=== PATIENT | male | born 1950 | race Caucasian/White ===

== ENCOUNTER 2016-07-29 11:04 | Inpatient (IN) | payer MEDICAID ==
[~2016-07-29] VITALS: Ht 180.3 cm; Wt 92.5 kg
--- NOTE | ~2016-07-29 | OP ---
PATIENT NAME: ALDAIR SANTOS MEDICAL RECORD: [id number] :54 LOCATION:D.M2 D.2117 ADMISSION DATE:07/29/16 SURGEON: LESTER FUNES MD DATE OF OPERATION: 07/31/2016 SURGEON: Lester Funes MD. ANESTHESIA: General, Dr. Root. OPERATION PERFORMED: Insertion of dual-chamber pacing system. PREOPERATIVE DIAGNOSES: Sick sinus syndrome, bradycardia. POSTOPERATIVE DIAGNOSES: Sick sinus syndrome, bradycardia. INDICATION FOR OPERATION: Profound bradycardia. FINDINGS OF THE OPERATION: The pulse generator Medtronic Adapta ADDR01, serial number [id number]. ATRIAL LEAD: Medtronic model number 4574-45, serial number [id number]. Ventricular lead Medtronic model number 4074-52, serial number [id number]. LEAD ANALYSIS: Atrial lead threshold 0.3 volts, current lead threshold 0.4 milliamps, resistance 593 ohms. P-wave 2.6, slew rate 2.3. Ventricular lead threshold 0.3 volts, current lead threshold 0.2 milliamps, resistance 1021 ohms, R-wave 10.0, slew rate 4.1. ESTIMATED BLOOD LOSS: Less than 5 cc. DESCRIPTION OF PROCEDURE: After informed consent, adequate preoperative medication and evaluation, the patient was brought to the operating room and placed on the table in the supine position. After induction of general endotracheal anesthesia and application of appropriate monitoring devices, the left chest was prepped and draped in a sterile field, utilizing Betadine scrub, alcohol, and Betadine solution. A Betadine-impregnated drape was also used. A 1% lidocaine was infiltrated in the left subclavicular space. Incision was made and dissection carried down the fascia. A pacemaker pocket was formed. Subclavian vein was cannulated with the introducers, leads placed in the heart. The above electrophysiologic study was done. The leads were secured. The leads were then connected to the pulse generator and pacemaker placed in the pocket. Pacemaker fired, captured and sensed appropriately. Pocket was irrigated. Instrument count and sponge count were correct times 2. Pocket was closed in layers utilizing 3-0 Vicryl on the deep subcutaneous tissue with 3-0 Vicryl on superficial subcutaneous tissues. Skin approximated with 5-0 subcuticular Monocryl. Sterile dressings were applied. The patient tolerated the procedure well and was transferred to postanesthesia recovery in satisfactory condition. TRANSINT:[id number] Voice Confirmation ID: [id number] DOCUMENT ID: [id number] OPERATIVE REPORT [id number] ALDAIR SANTOS EDWARD MD CC: [id number] DICTATION DATE: 07/31/161452 RECORDS MANAGEMENT ASSOCIATE: 07/31/162235 ADM IN [place] [id number] [place] [address]
--- NOTE | ~2016-07-29 | HEMODYNAMI ---
PATIENT:ALDAIR SANTOS MEDICAL RECORD: [id number] : 54 LOCATION[id number] ADMISSION DATE: 07/29/16 Generatedon:07/30/201611:47 Patient name: ALDAIR SANTOS Patient #: [id number] SSN: : 1950 Date of study: 07/30/2016 Page: Of Hemodynamic Procedure Report Patient Data Patient Demographics Procedure consent was obtained First Name: ALDAIR Gender: Male Last Name: DANIELLE : 1950 [facility] Initial: CIRILO Age: 65 year(s) Patient #: [id number] Race: Unknown Additional ID: [id number] Contact details [address]: [address] [place] [address] [address] State: [place] City: [place] Zip code: [address] Past Medical History Allergies: No known allergies Admission Admission Data Admission Date: 07/29/2016 Admission Time: 14:58 Room #: D.2117 Lab Results Lab Result Date: 07/29/2016 Lab Result Time: 0:00 Biochemistry Name Units Result Min Max CK-MB ng/ml 10.9 --(----)-* 0 3.6 Creatinine mg/dl 1.2 --(---*)-- 0.6 1.3 Creatinine l 422 --(----)-* 21 215 Kinase Troponin l ng/ml 0.017 --(-*--)-- 0 0.06 CBC Name Units Result Min Max Hemoglobin g/dl 13.7 --(*---)-- 13.5 17.5 Procedure Procedure Types Cath Procedure Diagnostic Procedure C [facility] w/Coronaries FFR/IVUS Intra-Coronary IVUS Initial PCI Procedure Coronary Stent Initial Miscellaneous Procedures Moderate Sedation up to 30 minutes Procedure Description Procedure Date Procedure Date: 07/30/2016 Procedure Start Time: 11:26 Procedure End Time: 11:47 Procedure Staff Name Function Luis Alberto Carroll MD Performing Physician Jose Delgadillo RT Scrub Saeid Suggs RN Nurse Monika Mendez RT Monitor Procedure Data Cath Procedure Fluoroscopy Diagnostic fluoroscopy Total fluoroscopy Time: 4 time: 4 min min Diagnostic fluoroscopy Total fluoroscopy dose: 675 dose: 675 mGy mGy Contrast Material Contrast Material Type Amount (ml) Isovue 300 87 Entry Location Entry Primary Successful Side Size Upsize Upsize Entry Closure Martínez ccessful Closure Location (Fr) 1 (Fr) 2 (Fr) Remarks Device Remarks Radial Right 6 Fr Mechanical artery Short Compression Estimated blood loss: 10 ml Diagnostic catheters Device Type Used For End Catheter Placement Terumo 5Fr Tram 110cm LV Angiography catheter Terumo 5Fr Tram 110cm Left Coronary catheter Angiography Terumo 5Fr Tram 110cm Right Coronary catheter Angiography Diagnostic Infinity 5Fr Right Coronary AR 2 MOD catheter Angiography Procedure Complications No complications Procedure Medications Medication Administration Route Dosage Oxygen NC 2 l/min Heparin Flush Bag added to field 2 bags (1000units/500ml NS) 0.9% NaCl I.V. 100 ml/hr Radial Cocktail added to field 1 syringe (Verapomil 2mg/Nitro 400mcg/Heparin 1500units) Effient P.O. 10 mg Fentanyl I.V. 50 mcg Versed I.V. 1 mg Fentanyl I.V. 50 mcg Versed I.V. 1 mg Radial Cocktail I.A. 1 syringe (Verapomil 2mg/Nitro 400mcg/Heparin 1500units) Heparin Bolus I.V. 4000 units Hemodynamics Rest HGB: 13.7 (g/dl) Heart Rate: 49 (bpm) Snapshots Pre Cath Intra NCS Post Cath Vital Signs Time Heart Resp SPO2 etCO2 [id number] NIBP (mmHg) Rhythm Pain Sedation Rate (ipm) (%) (mmHg) (mmHg) Status Level (bpm) 11:10:11 48 18 95 0 0 186/92(124) NSR 0 (11) 10(A) , No pain 11:14:43 48 17 96 0 0 184/90(157) NSR 0 (11) 10(A) , No pain 11:20:17 49 16 96 0 0 167/81(131) NSR 0 (11) 10(A) , No pain 11:24:43 48 17 95 0 0 150/88(134) NSR 0 (11) 10(A) , No pain 11:29:05 50 18 95 0 0 149/82(110) NSR 0 (11) 9(A) , No pain 11:33:15 53 18 96 0 0 122/75(105) NSR 0 (11) 9(A) , No pain 11:37:29 49 18 96 0 0 135/76(106) NSR 0 (11) 9(A) , No pain 11:41:45 49 16 94 0 0 149/84(108) NSR 0 (11) 9(A) , No pain 11:46:09 46 18 95 0 0 161/78(125) NSR 0 (11) 9(A) , No pain Medications Time Medication Route Dose Verified Delivered Reason Note s Effectiveness by by 11:08:10 Oxygen NC 2 l/min Saeid Breaux Per physician Ifeanyi Suggs RN RN 11:08:22 Heparin Flush added 2 bags Saeid Cheny used for Bag to Ifeanyi Suggs RN procedure (1000units/500ml field RN NS) 11:08:38 0.9% NaCl I.V. 100 Saeid Breaux Per physician ml/hr Ifeanyi Suggs RN RN 11:08:50 Radial Cocktail added 1 Saeid Breaux used for (Verapomil to syringe Ifeanyi Suggs RN procedure 2mg/Nitro RN 400mcg/Heparin 1500units) 11:13:13 Effient P.O. 10 mg Saeid Cheny for Ifeanyi Suggs RN antiplatelet RN therapy 11:25:41 Fentanyl I.V. 50 mcg Saeid Cheny for sedation Ifeanyi Suggs RN RN 11:25:49 Versed I.V. 1 mg Saeid Breaux for sedation Ifeanyi Suggs RN RN 11:30:46 Fentanyl I.V. 50 mcg Saeid Saeid for sedation Ifeanyi Suggs RN RN 11:30:51 Versed I.V. 1 mg Saeid Saeid for sedation Ifeanyi Suggs RN RN 11:31:02 Radial Cocktail I.A. 1 Saeid Almanzarrey for (Verapomil syringe Ifeanyi bhandari 2mg/Nitro RN 400mcg/Heparin 1500units) 11:37:49 Heparin Bolus I.V. 4000 Saeid Breaux for units Ifeanyi Suggs RN anticoagulation religion professor Log Time Note 10:50:11 Saeid Suggs RN sent for patient. Start room use. 10:57:11 Time tracking: Regular hours 10:57:15 Plan of Care:Hemodynamics will remain stable., Cardiac rhythm will remain stable., Comfort level will be maintained., Respiratory function will remain adequate., Patient/ family verbilizes understanding of procedure., Procedure tolerated without complication., Recovers from procedure without complications.. 11:02:26 Patient received from PCU to CCL 1 Alert and oriented. Tansferred to table in Supine position. 11:02:27 Warm blankets applied, and kemar hugger turned on for patient comfort. 11:02:28 Correct patient and procedure confirmed by team. 11:02:29 Signed procedure consent form obtained from patient. 11:02:30 ECG and BP/O2 sat monitors applied to patient. 11:02:31 Full Disclosure recording started 11:07:50 Vital chart was started 11:08:10 Oxygen 2 l/min NC was administered by Saeid Suggs RN; Per physician; 11:08:22 Heparin Flush Bag (1000units/500ml NS) 2 bags added to field was administered by Saeid Suggs RN; used for procedure; 11:08:38 0.9% NaCl 100 ml/hr I.V. was administered by Saeid Suggs RN; Per physician; 11:08:50 Radial Cocktail (Verapomil 2mg/Nitro 400mcg/Heparin 1500units) 1 syringe added to field was administered by Saeid Suggs RN; used for procedure; 11:13:13 Effient 10 mg P.O. was administered by Saeid Suggs RN; for antiplatelet therapy; 11:14:48 H&P Date Dictated: 07/30/2016 Within 30 days and on chart.. 11:14:53 Rhythm: sinus bradycardia 11:14:55 Baseline sample Acquired. 11:14:56 Pre-procedure instructions explained to patient. 11:14:57 Pre-op teaching completed and patient verbalized understanding. 11:14:59 Family in patients room. 11:15:02 Patient NPO since Midnight. 11:15:10 Patient allergic to No known allergies 11:15:13 Is the patient allergic to Iodine/contrast media? No. 11:15:18 Is patient on blood thinner?Yes 11:15:20 ACC The patient was administered the following blood thiners within the last 24 hours: ACCEffient 11:15:26 Patient diabetic? No. 11:15:36 Previous problem with sedation/anesthesia? No ? 11:15:39 Snore? Yes 11:15:40 Sleep apnea? Yes 11:15:41 Deviated septum? No 11:15:41 Opens mouth fully? Yes 11:15:42 Sticks out tongue? Yes 11:15:45 Airway obstruction? No ? 11:15:48 Dentures? Yes OUt 11:16:03 IV Extension Set opened to sterile field. 11:16:10 Pre procedure: right dorsailis pedis pulse 2+ Normal; easily identifiable; not easily obliterated 11:16:12 Modified Joo's test Ulnar < 7 seconds 11:16:14 Patient pain scale 0/10 ?. 11:16:20 IV patent on arrival in left forearm with 0.9% NaCl at [facility]. 11:17:19 Lab Result : Creatinine 1.2 mg/dl 11:17:19 Lab Result : CK-MB 10.9 ng/ml 11:17:19 Lab Result : Troponin l 0.017 ng/ml 11:17:19 Lab Result : Creatinine Kinase 422 l 11:17:19 Lab Result : Hemoglobin 13.7 g/dl 11:19:48 Lab results completed and on chart. 11:19:52 Right Radial & Right Groin area was prepped with chlora-prep and draped in sterile fashion 11:19:55 Alarms reviewed by R. N. 11:19:55 Sharps counted by scrub and verified by R.N. 11:19:58 Use device set Radial Dx 11:19:59 Acist Syringe opened to sterile field. 11:20:00 Medline Cath Pack opened to sterile field. 11:20:00 Bag Decanter opened to sterile field. 11:20:01 Terumo 6Fr Slender Glidesheath opened to sterile field. 11:20:01 St Khalif 260cm J .035 wire opened to sterile field. 11:20:02 Acist Hand Control opened to sterile field. 11:20:02 Acist Manifold opened to sterile field. 11:20:03 Tegaderm 4 x 4 opened to sterile field. 11:20:03 MBrace Wrist Support opened to sterile field. 11:24:46 Final Timeout: patient, procedure, and site verified with staff and physician. All members of the team are in agreement. 11:24:51 Right Radial site verified by team. 11:24:55 Physical assessment completed. ASA score P 2 - A patient with mild systemic disease as per Jose Delgadillo RT(R). 11:24:58 Sedation plan: IV Moderate Sedation Versed, Fentanyl 11:25:08 Zero performed for pressure channel P1 11:25:12 Zero performed for pressure channel P1 11:25:14 Zero performed for pressure channel P1 11::17 Zero performed for pressure channel P1 11:25:30 Procedure started. 11:25:41 Fentanyl 50 mcg I.V. was administered by Saeid Suggs RN; for sedation; 11::49 Versed 1 mg I.V. was administered by Saeid Suggs RN; for sedation; 11:26:22 Local anesthetic to right radial artery with Lidocaine 2% by Luis Alberto Carroll MD.INITIAL ACCESS ONLY 11:30:40 A 6 Fr Short sheath was inserted into the Right Radial artery 11:30:46 Fentanyl 50 mcg I.V. was administered by Saeid Suggs RN; for sedation; 11::51 Versed 1 mg I.V. was administered by Saeid Suggs RN; for sedation; 11:31:02 Radial Cocktail (Verapomil 2mg/Nitro 400mcg/Heparin 1500units) 1 syringe I.A. was administered by Luis Alberto Carroll MD; for vasodilation; 11:31:53 A Terumo 5Fr Tram 110cm catheter was advanced over the wire and used for LV Angiography. 11:32:14 LV gram done using EDUARDO 11:32:17 Injector settings: Ml/sec: 5, Volume: 15, 11:32:24 EF : 55 % 11:32:42 A Terumo 5Fr Tram 110cm catheter was advanced over the wire and used for Left Coronary Angiography. 11:33:22 Merit BasixCompak Inflation Kit opened to sterile field. 11:33:22 Anderson Whisper J 300cm 0.014 guide wire opened to sterile field. 11:34:08 A Terumo 5Fr Tram 110cm catheter was advanced over the wire and used for Right Coronary Angiography.Unable to cannulate. 11:34:16 Catheter removed. 11:34:26 A Diagnostic Infinity 5Fr AR 2 MOD catheter was advanced over the wire and used for Right Coronary Angiography. 11:35:37 Catheter removed. 11:35:43 Medtronic Launcher 6Fr AR 2.0 guide catheter opened to sterile field. 11:36:20 6 Fr AR 2.0 guide catheter was inserted over the wire 11:37:49 Heparin Bolus 4000 units I.V. was administered by Saedi Suggs RN; for anticoagulation; 11:37:55 Whisper wire advanced. 11:38:43 [place] Lummi Eagleye IVUS Catheter opened to sterile field. 11:39:20 IVUS catheter advanced over wire. 11:41:16 IVUS pass to RCA lesion performed. 11:41:19 IVUS catheter removed over wire. 11:42:53 Inflation Number: 1 A Medtronic Integrity 4.0 X 18 stent was prepped and advanced across the Prox RCA. The stent was deployed at 17 EFRAÍN for 0:10 (min:sec). 11:43:06 Stent catheter was removed intact over wire. 11:43:07 Wire removed. 11:43:07 Guide catheter removed. 11:43:17 Sheath removed intact; hemostasis achieved with Mechanical Compression to the Right Radial artery. 11:43:27 Procedure ended.(Physican Out) 11:43:38 Fluoroscopy time 04.00 minutes. 11:43:42 Flurop Dose total: 675 11:43:42 Fluoroscopy dose: 675 mGy 11:43:45 Contrast amount:Isovue 300 87ml. 11:43:47 Sharps counted by scrub and verified by R.N. 11:43:49 TR band inflated with 12cc of air. 11:43:50 Insertion/operative site no bleeding no hematoma. 11:43:57 Post right radial artery:stable, clean and dry 11:43:59 Post Procedure Pulses reassessed and unchanged 11:44:04 Post-procedure physical assessment completed. ASA score P 2 - A patient with mild systemic disease as per Luis Alberto Carroll MD. 11:44:08 Post procedure rhythm: unchanged. 11:44:12 Estimated blood loss: 10 ml 11:44:14 Post procedure instruction explained to patient.Patient verbalizes understanding. 11:44:15 Patient needs reinforcement of post procedure teaching. 11:44:33 Procedure type changed to Cath procedure, Diagnostic procedure, LHC, LHC w/Coronaries, FFR/IVUS, Intra-Coronary IVUS Initial, PCI procedure, Coronary Stent Initial, Miscellaneous Procedures, Moderate Sedation up to 30 minutes 11:44:38 Procedure Complication : No complications 11:44:40 See physician's report for complete and final results. 11:44:57 Terumo TR Band Standard opened to sterile field. 11:47:05 Procedure and supply charges have been captured, reviewed, submitted and are correct. 11:47:07 Vital chart was stopped 11:47:09 Report given to PCU. 11:47:13 Patient transfered to PCU with Bed. 11:47:21 Procedure ended. 11:47:21 Full Disclosure recording stopped 11:47:24 End room use (Document Last) Intervention Summary Intervention Notes Time ActionType Lesion and Equipment Action# Pressure Duration Attributes Used 11:42:53 Place stent Prox RCA Medtronic 1 17 00:10 Integrity 4.0 X 18 stent Device Usage Item Name Manufacture Quantity Catalog Hospital Part Current Minimal Lot# / Number Charge Number Stock Stock Serial# Code IV Hospira 1 63310-51 057265 81761 712794 5 Extension Set Acist Acist 1 53299 708799 802624 904088 20 Syringe Medical Systems Inc Medline Cardinal 1 [id number] 475135 18162 610829 5 Cath Pack Health Bag Microtek 1 2002S 689113 08999 483572 5 Medialets Medical Inc. Terumo 6Fr Terumo 1 [id number] 165195 556483 552402 [address] Khalif 1 383641 451681 401594 600112 30 260cm J .035 wire Acist Hand Acist 1 86405 487760 521873 319816 5 Control Medical Systems Inc Acist Acist 1 61574 256245 467115 172757 5 Manifold Medical Systems Inc Tegaderm 4 3M 1 1626W 044176 150854 613618 5 x 4 MBrace Advanced 1 140-0250-00 670855 65365 749341 5 Wrist Vascular Support Dynamics Terumo 5Fr Terumo 1 85-9202 987560 853546 354353 5 Tram 110cm catheter Merit Merit 1 SC4913 256453 962513 019529 15 BasixCompak Medical Inflation Kit Anderson Anderson 1 [id number] 668659 917990 166104 5 Whisper J Vascular 300cm 0.014 guide wire Diagnostic Cardinal 1 [id number] 883539 851134 356895 20 Infinity Health 5Fr AR 2 MOD catheter Medtronic Medtronic 1 [id number] 418584 66144 462931 1 Launcher 6Fr AR 2.0 guide catheter [place] Town Old Town 1 [id number] 727291 811406 031497 8 Lummi Eagleye IVUS Catheter Medtronic Medtronic 1 [id number] 840966 607928 829644 8 [id number] Integrity 4.0 X 18 stent Terumo TR Terumo 1 [id number] 853592 950729 040928 40 Band Standard Signature Audit [place] Stage Time Signature Unsigned Intra-Procedure 07/30/2016 Monika 11:47:34 AM Counts RT(R) Signatures Monitor : Monika Signature : Counts RT Date : Time : [place] [address] [place] [address]
[2016-07-29 12:42] LABS: EOSINOPHILS 1.2 % (0-7); HEMATOCRIT 42.6 % (42.0-54.0); HEMOGLOBIN 13.7 g/dL (13.5-17.5); LYMPHOCYTES 32.4 % (15-50); MCH 29.8 pg (26.0-34.0); MCHC 32.2 g/dL (31.0-37.0); MCV 92.6 fL (80.0-100.0); MEAN PLATELET VOLUME 10.2 fL (7.4-10.4); MONOCYTES 8.3 % (2-11); NEUTROPHILS 57.1 % (40-80); PLATELET COUNT 220 10x3/uL (130-400); RDW 13.6 % (11.5-14.5); WBC 6.1 10x3/uL (4.8-10.8)
[2016-07-29 13:00] LABS: ALBUMIN 3.7 g/dL (3.4-5.0); ALKALINE PHOSPHATASE 58 U/L (46-116); ALT (SGPT) 36 U/L (10-68); CALC OSMOLALITY 285 mosm/kg (275-300); CALCIUM 8.7 mg/dL (8.5-10.1); CARBON DIOXIDE 27.6 mmol/L (21.0-32.0); CHLORIDE - SERUM 108 mmol/L (98-107); CREATININE - SERUM 1.2 mg/dL (0.6-1.3); GLUCOSE 94 mg/dL (74-106); POTASSIUM - SERUM 4.9 mmol/L (3.5-5.1); PROTEIN - SERUM 7.2 g/dL (6.4-8.2); SODIUM 143 mmol/L (136-145); UREA NITROGEN 16 mg/dL (7-18); eGFR NON AFRICAN AMERICAN 65 mL/min (90-120)
[2016-07-29 13:09] LABS: CHOL - HDL RATIO 3.8 ratio (2.3-4.9); CHOLESTEROL, TOTAL 198 mg/dL (0-200); CKMB 10.9 U/L (0.0-3.6); CREATINE KINASE 422 UL (21-232); HDL CHOLESTEROL 52 mg/dL (32-96); LDL CHOLESTEROL 120 mg/dL (0-100); LDL-HDL RATIO 2.3 ratio (1.5-3.5); PRO BNP 133 pg/mL (0-125); TRIGLYCERIDE 132 mg/dL (30-200); TROPONIN-I < 0.017 ng/mL (0.000-0.060)
--- NOTE | 2016-07-29 16:00 | NUR ---
RECEIVED PT TO ROOM 2116 VIA W/C FROM ER TELEMETRY APPLEID PT HEART RATE DROPPED TO 30 PT BECOMES SYMPTOMATIC DIZZINESS SOB RESOLVES WHEN PT LAYS DOWN AAOX4 DENIES ANY CHEST PAIN AT THIS TIME WILL CONTINUE TO MONITOR
[2016-07-29 16:10] VITALS: BP 159/86; Ht 180.3 cm; Wt 92.5 kg
[2016-07-29] MEDS ORDERED: AVAPRO300 MG PO (18:13)
[2016-07-29] MEDS ORDERED: ISOSORBIDE MONO60 M1 PO (18:13)
[2016-07-29] MEDS ORDERED: EFFIENT10 MG PO (18:14)
[2016-07-29] MEDS ORDERED: BAYER CHEWABLE81 MG PO (18:14)
[2016-07-29] MEDS ORDERED: CARDURA4 MG PO (18:14)
[2016-07-29 20:00] VITALS: BP 127/75
[2016-07-30] VITALS: BP 156/81
[2016-07-30 04:00] VITALS: BP 177/81
[2016-07-30 08:10] VITALS: BP 149/68
--- NOTE | 2016-07-30 11:06 | NUR ---
PT TO GLOVE MACHINE OPERATOR VIA BED IN STABLE CONDITION
--- NOTE | 2016-07-30 11:46 | HP ---
PATIENT: ALDAIR SANTOS MEDICAL RECORD: [id number] ACCOUNT: [id number] LOCATION:D. D.2117 : 54 ADMISSION DATE: 07/29/16 HISTORY AND PHYSICAL EXAMINATION ADMITTING DIAGNOSES: 1. Angina. 2. Coronary artery disease. 3. Multivessel percutaneous transluminal coronary angioplasty stent last being in January [address] Davis. 4. Hyperlipidemia. 5. Hypertension. 6. Bradycardia. HISTORY OF PRESENT ILLNESS: This is a gentleman who presents with anginal symptomatology with past history of multivessel PTCA stent, last being in January 2016. His chest pain has been present for 2 days. He as well has a very significant bradycardia with heart rates in the low 40s. He has had overall fatigue and listlessness. His troponin is normal. PHYSICAL EXAMINATION: GENERAL APPEARANCE: Well-nourished, well-developed, appears stated age. Level of distress, comfortable. PSYCHIATRIC: Mental status, alert, normal affect. Orientation, oriented to time, place and person. EYES: Lids and conjunctiva, noninjected. No discharge, no pallor. ENT: Lips, teeth, gums, normal dentition. Oropharynx, no cyanosis, no pallor. NECK: Carotid arteries, bilateral normal upstroke, no bruits, no thrills. JUGULAR VEINS: No jugular venous pressure or distention. CERVICAL LYMPH NODES: Nontender, nonenlarged. THYROID: Not enlarged. Nontender. No nodules. LUNGS: Respiratory effort, unlabored. CHEST: Normal curvature. No thoracic deformity. No chest wall tenderness. Percussion, resonant. Auscultation, clear. No wheezes, no rales, no rhonchi. CARDIOVASCULAR: Precordial exam, nondisplaced. No heaves or pericardial thrills. Rate and rhythm, regular. Heart sounds, normal S1, normal S2. No S3, no gallop, no rub. Systolic murmur, not heard. Diastolic murmur, not heard. EXTREMITIES: No cyanosis, no edema. Peripheral pulses, full and equal in all extremities, except as noted. No bruits appreciated. ABDOMEN: Soft, nondistended. Normal aorta. No bruit. Nontender. No masses. Liver, nontender, no hepatomegaly. Spleen, nontender, no splenomegaly. MUSCULOSKELETAL: No joint tenderness. No joint swelling. No erythema. NEUROLOGICAL: Normal gait, normal strength, normal tone. SKIN: Warm and dry. REVIEW OF SYSTEMS: The patient reports easy bruising but reports no swollen glands. The patient reports no fever, no night sweats, no significant weight gain, no significant weight loss. No significant exercise tolerance. The patient reports no dry eyes, no irritation, no vision change. Patient reports no difficulty hearing and no ear pain. Patient reports no frequent nose bleeds or nose and sinus problems. Patient reports on arm pain on exertion. No shortness of breath while lying down. No history of heart murmur. Patient reports no cough, no wheezing or coughing up blood. Patient reports no abdominal pain, no vomiting. Normal appetite. No diarrhea and not vomiting blood. No nausea and no constipation. Patient reports no incontinence. No HISTORY AND PHYSICAL [id number] ALDAIR SANTOS difficulty urinating. No hematuria. No increased frequency. Patient reports no muscle aches. No weakness, no arthralgias, no back pain. No swelling of the extremities. Patient reports no abnormal mole, no jaundice, no rashes. Reports no loss of consciousness. No weakness and no numbness. No seizures, dizziness, or headaches. The patient reports no depression, no sleep disturbance, feeling safe in a relationship and no alcohol abuse. Patient reports on fatigue. Reports no runny nose or sinus pressure. No itching, no hives, and no frequent sneezing. OVERALL IMPRESSION: Anginal symptomatology and bradycardia. We will proceed with coronary angiography. Further care depends on the findings of the angiography. He very well may need a permanent pacemaker as well. TRANSINT:[id number] Voice Confirmation ID: [id number] DOCUMENT ID: [id number] ANA CRISTINA ATKINSON MD at 1146 CC: [id number] DICTATION DATE: 07/30/16 1004 MIDDLE SCHOOL COACH: 07/30/16 1039 ADM IN [place] [id number] [place] [address]
--- NOTE | 2016-07-30 13:00 | NUR ---
RECEIVED PT BACK FROM ORGANIZATIONAL DEVELOPMENT MANAGER VIA BED RT WRIST TR BAND IN PLACE WITH BRACE NO SIGNS OF BLEEDING
--- NOTE | 2016-07-30 13:20 | NUR ---
CONSULT CALLED TO DR AMATO
[2016-07-30 16:14] VITALS: BP 104/59
--- NOTE | 2016-07-30 19:00 | NUR ---
INITIAL ROUNDS MADE. PT SITTING UP IN BED WITH FAMILY IN ROOM. DENIES NEEDS OR C/O AT THIS TIME. RIGHT WRIST STABLE. VSS. CALL LIGHT IN REACH. WILL CONT TO MONITOR.
[2016-07-30 20:27] VITALS: BP 119/64
[2016-07-30 23:24] VITALS: BP 111/69
[2016-07-31 05:32] VITALS: BP 129/64
--- NOTE | 2016-07-31 05:54 | NUR ---
RESTING WELL WITH EYES CLOSED, NO DISTRESS NOTED. CALL LIGHT IN REACH. WILL CONT TO MONITOR.
--- NOTE | 2016-07-31 07:57 | NUR ---
AWAKE WITHOUT ANY DISTRESS. MONITOR SHOWS NSR @ PRESENT WITH RATE OF 67. NPO PER ORDERS. WILL CONTINUE TO MONITOR.
[2016-07-31 08:06] VITALS: BP 139/81
--- NOTE | 2016-07-31 10:01 | NUR ---
IV ACCESS-20 GAUGE INSERTED IN LEFT HAND X 1 ATTEMPT. LASHA MONTOYA RN
[2016-07-31 10:31] LABS: HEMATOCRIT 42.7 % (42.0-54.0); HEMOGLOBIN 14.1 g/dL (13.5-17.5); MCV 90.9 fL (80.0-100.0); MEAN PLATELET VOLUME 9.9 fL (7.4-10.4); RBC 4.7 10x6/uL (4.20-6.10); RDW 13.2 % (11.5-14.5); WBC 6.6 10x3/uL (4.8-10.8)
[2016-07-31 10:42] LABS: APTT 26.7 SECONDS (22.8-39.4); INR 1.01 (0.85-1.17); PROTIME 13.2 SECONDS (11.6-15.0)
[2016-07-31 10:44] LABS: ANION GAP 13.7 mmol/L (8-16); CALCIUM 8.4 mg/dL (8.5-10.1); CARBON DIOXIDE 26.5 mmol/L (21.0-32.0); CREATININE - SERUM 1.2 mg/dL (0.6-1.3); POTASSIUM - SERUM 4.2 mmol/L (3.5-5.1)
--- NOTE | 2016-07-31 11:14 | NUR ---
THIS AM. DR. AMATO VISITED AND EXPLAINED PACEMAKER TO PT AND FAMILY. JAIRO SUH GIVEN CONSENTS SIGNED. REMAINS NPO. @ 1115 MONITOR SHOWS SBRADYCARDIA @ 44. WILL CONTINUE TO MONITOR.
[2016-07-31 12:40] VITALS: BP 152/75
[2016-07-31 15:35] VITALS: BP 162/86
--- NOTE | 2016-07-31 15:38 | NUR ---
BACK FROM OR. AWAKE BUT SLEEPING. DRESSING CLEAN, DRY AND INTACT. VS STABLE. MONITOR SHOWS SR @ 60. WILL CONTINUE TO MONITOR.
[2016-07-31 16:12] VITALS: BP 162/86
--- NOTE | 2016-07-31 17:16 | NUR ---
RECEIVED REPORT FROM HARVEY CRUMP PT, AM MEDICINE, DENIES ANY NEEDS, CALL LIGHT IN REACH
--- NOTE | 2016-07-31 19:00 | NUR ---
INITIAL ROUNDS MADE. PT SITTING UP IN BED WITH FAMILY IN ROOM. LEFT CHEST WALL PM WITH DRSG INTACT. SLING IN PLACE. DENIES NEEDS OR C/O AT THIS TIME. WILL CONT TO MONITOR.
[2016-07-31 20:00] VITALS: BP 116/64
[2016-08-01] VITALS: BP 127/63
--- NOTE | 2016-08-01 00:02 | NUR ---
CONCHE LOADER AND UNLOADER AT BEDSIDE FOR VS. NEEDS ADDRESSED. CALL LIGHT IN REACH. WILL CONT TO MONITOR.
[2016-08-01 04:00] VITALS: BP 120/64
--- NOTE | 2016-08-01 06:07 | NUR ---
RESTING WELL WITH EYES CLOSED, NO NEEDS OR C/O AT THIS TIME. WILL CONT TO MONITOR.
[2016-08-01 07:58] VITALS: BP 115/82
--- NOTE | 2016-08-01 08:07 | NUR ---
AWAKE WAITING FOR PACEMAKER CHECK. MONITOR SHOWS PACING @ 60. DRESSING CDI.
[2016-08-01 11:25] VITALS: BP 101/63
--- NOTE | 2016-08-01 11:52 | OP ---
PATIENT NAME: ALDAIR SANTOS MEDICAL RECORD: [id number] :54 LOCATION:D.M2 D.2117 ADMISSION DATE:07/29/16 SURGEON: ANA CRISTINA ATKINSON MD DATE OF OPERATION: 07/30/2016 PROCEDURES: 1. PTCA stent RCA. 2. Intravascular ultrasound RCA. 3. Left heart catheterization. 4. Selective coronary angiography. 5. Left ventriculogram. INDICATION: Angina and coronary artery disease. PROCEDURE IN DETAIL: After informed consent was obtained and after detailed explanation of risks, benefits as well as alternative therapies, the patient elected to proceed with angiogram and angioplasty. The right femoral area was prepped and draped in normal sterile fashion. The right radial area was prepped and draped in normal sterile fashion. The right radial artery was cannulated via modified Seldinger technique with placement of 6-[place] sheath. All catheters exchanged through this sheath. FINDINGS: The left ventriculogram was performed in standard 30-degree EDUARDO view, reveals good cardiac wall motion throughout all segments. Overall ejection fraction 55% to 60%. SELECTIVE CORONARY ANGIOGRAPHY: 1. Left main showed no significant angiographic disease. 2. Left anterior descending has moderate irregularities, but no flow-limiting stenosis. The previously placed stent in the LAD is widely patent. 3. Left circumflex shows moderate irregularities, but no flow-limiting stenosis. 4. Right coronary has a 68% to 70% stenosis confirmed by intravascular ultrasound in the proximal vessel. PTCA STENT OF THE RIGHT CORONARY: The stent used was 4.0 x 18 mm Integrity. Result was 0% residual stenosis. OVERALL IMPRESSION: Successful percutaneous transluminal coronary angioplasty stent of the right coronary artery going from 68% to 70% initial stenosis confirmed by intravascular ultrasound to 0% residual stenosis. TRANSINT:[id number] Voice Confirmation ID: [id number] DOCUMENT ID: [id number] ANA CRISTINA ATKINSON MD at 1152 CC: [id number] DICTATION DATE: 07/30/16 1149 PROGRAM DEVELOPMENT MANAGER: 07/30/16 1207 [place] [address]
--- NOTE | 2016-08-01 13:02 | NUR ---
DISCHARGE INSTRUCTIONS GIVEN TO BOTH PATIENT AND SPOUSE. BOTH VERBALIZE UNERSTANDING. MONITOR SHOWS 60 PACED. IV REMOVED WITH TIP INTACT. TO CAR VIA [employer].
--- NOTE | 2016-08-01 13:14 | NUR ---
Patient Name: ALDAIR SANTOS Admission Status: ER Accout number: [id number] Admission Date: 07-31-2016 : 1950 Admission Diagnosis: Attending: KAMINI Current LOS: 1 Anticipated DC Date: 08-01-2016 Planned Disposition: Home Primary Insurance: [place] PRIVATE OPTIONS [place] LATE ENTRY: Discharge Planning Comments: * Is the patient Alert and Oriented? Yes 0 * How many steps to enter\exit or inside your home? 4 0 * PCP DR. SMITH 0 * Pharmacy [facility] 0 * Preadmission Environment Home with Family 0 * ADLs Independent 0 * Equipment None 0 * Other Equipment NO MEDICAL EQUIPMENT PROVIDER PREFERENCE 0 * List name and contact numbers for known caregivers / representatives who currently or will assist patient after discharge: WOODY SANTOS, SPOUSE, 0 * Community resources currently utilized None 0 * Please name any agencies selected above. NONE 0 * Additional services required to return to the preadmission environment? No 0 * Can the patient safely return to the preadmission environment? Yes 0 * Has this patient been hospitalized within the prior 30 days at any hospital? No 0 CM MET WITH PT IN ROOM TO DISCUSS DISCHARGE PLANNING AND NEEDS. PT REPORTS LIVING AT HOME INDEPENDENTLY WITH SPOUSE. PT HAS NO MEDICAL EQUIPMENT AND NO OUTSIDE SERVICES ASSISTING IN THE HOME. CM DISCUSSED AVAILABILITY OF HOME HEALTH, REHAB SERVICES AND MEDICAL EQUIPMENT. PT DENIES DISCHARGE NEEDS, REPORTS HIS SPOUSE IS HERE TO PICK HIM UP FOR DISCHARGE HOME TODAY. Survey Manager: Ron Zarate
--- NOTE | 2016-08-02 08:06 | DS ---
PATIENT:ALDAIR SANTOS :54 MEDICAL RECORD: [id number] DISCHARGE SUMMARY ADMISSION DATE: 07/29/16 DISCHARGE DATE: 08/01/16 DATE OF SERVICE: 08/01/2016 DIAGNOSES: 1. Angina. 2. Coronary artery disease. 3. Percutaneous transluminal coronary angioplasty stent right coronary artery this admission. 4. Hypertension. 5. Sick sinus syndrome. 6. Symptomatic bradycardia. 7. Status post permanent pacemaker. 8. Hyperlipidemia. HOSPITAL COURSE: Mr. Santos presents with anginal symptomatology, underwent successful PTCA stent of the RCA. He had symptomatic bradycardia into the 30s, underwent permanent pacemaker placement, had no further symptomatology. He was discharged home with no change in his medication as he is already on aspirin and Effient. He will follow up with [facility] in 1 month. TRANSINT:[id number] Voice Confirmation ID: [id number] DOCUMENT ID: [id number] ANA CRISTINA ATKINSON MD at 0806 CC: [id number] DICTATION DATE: 08/01/16 1143 SPEECH LANGUAGE PATHOLOGIST ASSISTANT: 08/02/16 0323 DIS IN 08/01/16 [facility] [address] [place] [address]
--- NOTE | 2016-08-02 08:06 | DS ---
PATIENT:ALDAIR SANTOS :54 MEDICAL RECORD: [id number] DISCHARGE SUMMARY ADMISSION DATE: 07/29/16 DISCHARGE DATE: 08/01/16 DISCHARGE DIAGNOSES: 1. Angina. 2. Coronary artery disease. 3. Percutaneous transluminal coronary angioplasty stent right coronary artery this admission. 4. Bradycardia. 5. Hypertension. 6. Hyperlipidemia. HOSPITAL COURSE: Mr. Aldair Santos presents with anginal symptomatology, found to have significant disease to the RCA, underwent successful PTCA stent of the RCA. He was discharged home with the addition of aspirin and Plavix to his medical regimen. He as well has significant bradycardia on multi-day monitor, will be ordered as an outpatient for this. We will follow up after the multi-day monitor. TRANSINT:[id number] Voice Confirmation ID: [id number] DOCUMENT ID: [id number] ANA CRISTINA ATKINSON MD at 0806 CC: [id number] DICTATION DATE: 07/30/16 1148 WET CHEMISTRY ANALYST: 07/31/16 0136 DIS IN 08/01/[address] [facility] [address] [place] [address]
== END 2016-08-01 15:18 | disposition home or self-care (01) | DRG 244 ==
LOC: D.ER 11:04 → D.M2 14:58 → OBSVTIME 14:58 → D.M2 14:58
PROVIDERS: Family Medicine; Internal Medicine Cardiovascular Disease; ADMIT Internal Medicine Interventional Cardiology
PROC: 4A023N7 Measurement of Cardiac Sampling and Pressure, Left Heart, Percutaneous Approach (ICD-10-PCS; 2016-07-30)
PROC: B2111ZZ Fluoroscopy of Multiple Coronary Arteries using Low Osmolar Contrast (ICD-10-PCS; 2016-07-30)
PROC: B2151ZZ Fluoroscopy of Left Heart using Low Osmolar Contrast (ICD-10-PCS; 2016-07-30)
PROC: B240ZZ3 Ultrasonography of Single Coronary Artery, Intravascular (ICD-10-PCS; 2016-07-30)
PROC: 02703DZ Dilation of Coronary Artery, One Artery with Intraluminal Device, Percutaneous Approach (ICD-10-PCS; principal; 2016-07-30 11:30)
PROC: 0JH606Z Insertion of Pacemaker, Dual Chamber into Chest Subcutaneous Tissue and Fascia, Open Approach (ICD-10-PCS; 2016-07-31)
PROC: 02H63JZ Insertion of Pacemaker Lead into Right Atrium, Percutaneous Approach (ICD-10-PCS; 2016-07-31)
PROC: 02HK3JZ Insertion of Pacemaker Lead into Right Ventricle, Percutaneous Approach (ICD-10-PCS; 2016-07-31)
DX: I25.119 Atherosclerotic heart disease of native coronary artery with unspecified angina pectoris (principal); Z95.5 Presence of coronary angioplasty implant and graft; I49.5 Sick sinus syndrome; I10 Essential (primary) hypertension; E78.5 Hyperlipidemia, unspecified

== ENCOUNTER 2016-09-15 19:35 | Emergency (ER) | payer MEDICAID ==
[2016-07-29 16:10] VITALS: BMI 32.7
[~2016-09-15 19:35] MED LIST: AVAPRO300 MG PO; BAYER CHEWABLE81 MG PO; CARDURA4 MG PO; EFFIENT10 MG PO; ISOSORBIDE MONO60 M1 PO
== END 2016-09-15 22:49 | disposition home or self-care (01) ==
LOC: D.ER 19:35
DX: L02.413 Cutaneous abscess of right upper limb (principal)

== ENCOUNTER → 2017-02-17 07:43 | Outpatient (CLI) | payer MEDICAID ==
[2016-07-29 16:10] VITALS: BMI 32.7
[2017-02-17 08:09] LABS: BASOPHILS 0.8 % (0-2); HEMATOCRIT 44.1 % (42.0-54.0); HEMOGLOBIN 14.5 g/dL (13.5-17.5); IMMATURE GRANULOCYTES 0.2 % (0-5); LYMPHOCYTES 29.7 % (15-50); MCH 30.1 pg (26.0-34.0); MCHC 32.9 g/dL (31.0-37.0); MCV 91.5 fL (80.0-100.0); MEAN PLATELET VOLUME 9.9 fL (7.4-10.4); MONOCYTES 7.8 % (2-11); NEUTROPHILS 58.5 % (40-80); PLATELET COUNT 259 10x3/uL (130-400); RBC 4.82 10x6/uL (4.20-6.10); RDW 12.9 % (11.5-14.5); WBC 5.9 10x3/uL (4.8-10.8)
[2017-02-17 08:38] LABS: ALBUMIN 3.6 g/dL (3.4-5.0); ALKALINE PHOSPHATASE 69 U/L (46-116); ALT (SGPT) 46 U/L (10-68); BILIRUBIN - TOTAL 0.68 mg/dL (0.2-1.3); CALC OSMOLALITY 284 mosm/kg (275-300); CALCIUM 8.7 mg/dL (8.5-10.1); CARBON DIOXIDE 29.3 mmol/L (21.0-32.0); CHLORIDE - SERUM 107 mmol/L (98-107); CHOL - HDL RATIO 3.8 ratio (2.3-4.9); CHOLESTEROL, TOTAL 197 mg/dL (0-200); GLUCOSE 91 mg/dL (74-106); HDL CHOLESTEROL 52 mg/dL (32-96); LDL CHOLESTEROL 131 mg/dL (0-100); LDL-HDL RATIO 2.5 ratio (1.5-3.5); POTASSIUM - SERUM 4.8 mmol/L (3.5-5.1); PROTEIN - SERUM 7.2 g/dL (6.4-8.2); SODIUM 142 mmol/L (136-145); THYROID STIMULATING HORMONE 1.43 uIU/mL (0.36-3.74); TRIGLYCERIDE 74 mg/dL (30-200); UREA NITROGEN 17 mg/dL (7-18); eGFR NON AFRICAN AMERICAN 80 mL/min (90-120)
== END | disposition home or self-care (01) ==
LOC: D.LAB 07:43
PROVIDERS: Family Medicine
DX: I10 Essential (primary) hypertension (principal); Z12.5 Encounter for screening for malignant neoplasm of prostate; Z13.6 Encounter for screening for cardiovascular disorders; E78.5 Hyperlipidemia, unspecified; M75.82 Other shoulder lesions, left shoulder; M16.9 Osteoarthritis of hip, unspecified

== ENCOUNTER → 2017-03-24 10:07 | Outpatient (CLI) | payer MEDICAID ==
[2016-07-29 16:10] VITALS: BMI 32.7
[2017-03-24 10:37] LABS: ALBUMIN 3.9 g/dL (3.4-5.0); ANION GAP 3.8 mmol/L (8-16); BILIRUBIN - TOTAL 0.7 mg/dL (0.2-1.3); CALCIUM 8.9 mg/dL (8.5-10.1); CARBON DIOXIDE 35.1 mmol/L (21.0-32.0); CREATININE - SERUM 1.2 mg/dL (0.6-1.3); POTASSIUM - SERUM 4.9 mmol/L (3.5-5.1); PROTEIN - SERUM 7.4 g/dL (6.4-8.2)
== END | disposition home or self-care (01) ==
LOC: D.LAB 10:07
PROVIDERS: Family Medicine
DX: I10 Essential (primary) hypertension (principal)

== ENCOUNTER 2018-03-15 19:55 | Emergency (ER) | payer MEDICARE ==
[~2018-03-15] VITALS: Ht 180.3 cm; Wt 118.2 kg
[2018-03-15 20:03] VITALS: Ht 180.3 cm; Wt 118.2 kg
[2018-03-15] MEDS ORDERED: TORADOL10 MG PO (22:06)
[2018-03-15 22:34] VITALS: BP 118/69
== END 2018-03-15 22:35 | disposition home or self-care (01) ==
LOC: D.ER 19:55
DX: S76.312A Strain of muscle, fascia and tendon of the posterior muscle group at thigh level, left thigh, initial encounter (principal); X58.XXXA Exposure to other specified factors, initial encounter; Y93.89 Activity, other specified; Y92.89 Other specified places as the place of occurrence of the external cause

== ENCOUNTER 2018-11-19 16:55 | Emergency (ER) | payer MEDICARE ==
[~2018-11-19] VITALS: Ht 180.3 cm; Wt 92.7 kg
[~2018-11-19 16:55] MED LIST changes: +TORADOL10 MG PO
[2018-11-19 17:13] VITALS: BP 150/85; Ht 180.3 cm; Wt 92.7 kg
[2018-11-19] MEDS ORDERED: SULFAMETHOXAZOL1 TA2 PO (18:10)
== END 2018-11-19 21:00 | disposition home or self-care (01) ==
LOC: D.ER 16:55
DX: S90.465A Insect bite (nonvenomous), left lesser toe(s), initial encounter (principal); G47.30 Sleep apnea, unspecified